=== PATIENT | female | born 1945 | race Caucasian/White ===

== ENCOUNTER 2018-04-25 12:55 | Outpatient (CLI) | payer OTHER | END 2018-04-25 13:09 | disposition home or self-care (01) | LOC: MAMO-SONO 12:55 | DX: Z12.31 Encounter for screening mammogram for malignant neoplasm of breast (principal); Z87.898 Personal history of other specified conditions; N64.89 Other specified disorders of breast; R92.8 Other abnormal and inconclusive findings on diagnostic imaging of breast; R92.2 Inconclusive mammogram ==

== ENCOUNTER 2018-05-05 13:06 | Outpatient (CLI) | payer OTHER | END 2018-05-05 15:46 | disposition home or self-care (01) | LOC: NUCLEAR 13:06 | DX: M81.0 Age-related osteoporosis without current pathological fracture (principal); E55.9 Vitamin D deficiency, unspecified ==

== ENCOUNTER 2018-08-05 12:19 | Outpatient (CLI) | payer OTHER | END 2018-08-05 15:45 | disposition home or self-care (01) | LOC: RAD 12:19 | DX: H25.813 Combined forms of age-related cataract, bilateral (principal); A15.0 Tuberculosis of lung ==